=== PATIENT | female | born 1965 | race American Indian/Alaskan Native ===

== ENCOUNTER 2016-08-27 22:51 | Emergency (ER) | payer SELFPAY ==
[2016-08-28] MEDS ORDERED: FUL-GLO OP ONE (03:08)
[2016-08-28] MEDS ORDERED: TETRACAINE 0.5% OU ONE (03:08)
--- NOTE | 2016-08-28 03:09 | Emergency Department Report ---
ED Eye Problem HPI - General Chief complaint: Eye Problems Stated complaint: R EYE IRRITATION/REDNESS Time Seen by Provider: 08/28/16 02:48 Source: patient Mode of arrival: Ambulatory Limitations: No Limitations - History of Present Illness Initial comments: Patient comes into the ER today with complaints of right eye pain since yesterday. Patient states that yesterday she felt like something got in her eye and tried to rub it out. Following such, the irritation continued and she removed her contacts placing some Visine in her eye and then went to bed. Upon awaking this morning she states that her eye was very red and still having that sensation of foreign body every time she blinked. Patient never saw anything come out of her eye and denies any obvious injury. Patient states that she does have glasses and she has been wearing her glasses all day today. MD chief complaint: eye pain, eye redness, foreign body - Related Data Previous Rx's Medication Instructions Recorded Last Taken Type Polymyxin B Sulf/Trimethoprim 2 drop OP TID #10 ml 08/28/16 Unknown Rx [Polytrim Eye Drops [id number]/0.1%] Allergies Allergy/AdvReac Type Severity Reaction Status Date / Time Penicillins Allergy Hives Verified 08/27/16 23:01 ED Review of Systems ROS: Stated complaint: R EYE IRRITATION/REDNESS Other details as noted in HPI Constitutional: denies: chills, fever Eyes: eye pain (right eye). denies: eye discharge, vision change ENT: denies: ear pain, throat pain Respiratory: denies: cough, shortness of breath, wheezing Cardiovascular: denies: chest pain, palpitations Endocrine: no symptoms reported Gastrointestinal: denies: abdominal pain, nausea, diarrhea Genitourinary: denies: urgency, dysuria, discharge Musculoskeletal: denies: back pain, joint swelling, arthralgia Skin: denies: rash, lesions Neurological: denies: headache, weakness, paresthesias Psychiatric: denies: anxiety, depression Hematological/Lymphatic: denies: easy bleeding, easy bruising ED Past Medical Hx - Past Medical History Previous Medical History?: Yes Hx Asthma: Yes - Surgical History Past Surgical History?: Yes Additional Surgical History: ECTOPIC - Social History Smoking Status: Never Smoker Substance Use Type: Marijuana - Medications Home Medications: Home Medications Medication Instructions Recorded Confirmed Last Taken Type Polymyxin B Sulf/Trimethoprim 2 drop OP TID #10 ml 08/28/16 Unknown Rx [Polytrim Eye Drops [id number]/0.1%] ED Physical Exam - General Limitations: No Limitations General appearance: alert, in no apparent distress - Head Head exam: Present: atraumatic, normocephalic - Eye Eye exam: Present: PERRL, EOMI, conjunctival injection, other (small corneal abrasion noted to right upper quadrant of right iris without foreign body identified.). Absent: normal appearance (right eye erythematous with right upper lid mildly swollen), periorbital swelling, periorbital tenderness Pupils: Present: normal accommodation - ENT ENT exam: Present: normal exam, normal orophraynx, mucous membranes moist, normal external ear exam - Neck Neck exam: Present: normal inspection - Respiratory Respiratory exam: Present: normal lung sounds bilaterally. Absent: respiratory distress - Cardiovascular Cardiovascular Exam: Present: regular rate, normal rhythm. Absent: systolic murmur, diastolic murmur, rubs, gallop - GI/Abdominal GI/Abdominal exam: Present: soft, normal bowel sounds - Extremities Exam Extremities exam: Present: normal inspection, normal capillary refill. Absent: pedal edema - Back Exam Back exam: Present: normal inspection - Neurological Exam Neurological exam: Present: alert, oriented X3, CN II-XII intact - Psychiatric Psychiatric exam: Present: normal affect, normal mood - Skin Skin exam: Present: warm, dry, intact, normal color. Absent: rash ED Course Vital Signs 08/27/16 23:01 Temperature 98.4 F Pulse Rate 70 Respiratory 20 Rate Blood Pressure 175/102 O2 Sat by Pulse 100 Oximetry - Eye Procedure Alcaine Drops Administered: Yes (tetracaine ophthalmic drops administered to right eye prior to exploration) Eye FB Removal: other (no identified foreign body noted to right eye or eyelids. ) Eye Irrigated w/ Saline (ccs): 30 Progress: For seen uptake to small corneal abrasion noted to right eye right upper quadrant section of iris. No visualized foreign body noted. ED Medical Decision Making - Medical Decision Making Patient tolerated by exam very well without any difficulty or complications. Patient does have obvious corneal abrasion noted to right eye. There is no visualized foreign bodies to removed from right eye. Patient states she is feeling much better after tetracaine ophthalmic applied. Patient appears to be getting conjunctivitis to her right eye with signs of recent foreign body injury. I've instructed patient follow up with her eye doctor next week if symptoms fail to resolve or worsen. Manual blood pressure reading is 168/88 manually. Have also instructed patient to follow-up with her primary care doctor to ensure that her blood pressure is remaining lower than our readings today. Patient does have history of blood pressure and states that she believes it to be elevated at cause of her eye discomfort. Patient is without any symptoms of chest pain, shortness breath, leg edema. Patient is in agreement. Plan patient is stable for discharge. Critical care attestation.: If time is entered above; I have spent that time in minutes in the direct care of this critically ill patient, excluding procedure time. ED Disposition Clinical Impression: Corneal abrasion, right, Conjunctivitis, Elevated blood pressure reading Disposition: TO HOME OR SELFCARE Is pt being admited?: No Does the pt Need Aspirin: No Condition: Good Instructions: Conjunctivitis (ED), Corneal Abrasion (ED) Prescriptions: Polymyxin B Sulf/Trimethoprim [Polytrim Eye Drops [id number]/0.1%] 2 drop OP TID #10 ml Referrals: PRIMARY CARE, [Primary Care Provider] - 3-5 Days Eye doctor, Your [Other] - 3-5 Days Time of Disposition: 03:38
[2016-08-28 03:40] VITALS: BP 168/88
== END 2016-08-28 03:44 | disposition home or self-care (01) ==
LOC: ED 22:51
DX: S05.01XA Injury of conjunctiva and corneal abrasion without foreign body, right eye, initial encounter (principal); R03.0 Elevated blood-pressure reading, without diagnosis of hypertension; J45.909 Unspecified asthma, uncomplicated; F12.10 Cannabis abuse, uncomplicated; X58.XXXA Exposure to other specified factors, initial encounter; Y93.9 Activity, unspecified; Y92.9 Unspecified place or not applicable; Y99.9 Unspecified external cause status; H10.9 Unspecified conjunctivitis
CPT/HCPCS: 99283